=== PATIENT | female | born 1990 | race Caucasian/White ===

== ENCOUNTER 2021-08-28 00:11 | Emergency (ER) | payer MEDICAID ==
[~2021-08-28] VITALS: Ht 152.4 cm; Wt 69.4 kg
[2021-08-28 00:56] VITALS: BP 131/70
--- NOTE | 2021-08-28 00:56 | NUR ---
bibself c/o abd pain, wanting ref to gi doc . pt ambulatory with steady gait
--- NOTE | 2021-08-28 01:09 | NUR ---
Patient does not wish to proceed with medical care recommended by Dr. James. Patient given information related to possible complications, up to and including , which could occur as a result of leaving the hospital at this time. Patient verbalizes understanding of risks involved due to leaving against medical advice. Patient has signed AMA form.
== END 2021-08-28 01:14 | disposition left against medical advice (07) ==
LOC: ER 00:13
DX: R10.9 Unspecified abdominal pain (principal); Z60.2 Problems related to living alone